=== PATIENT | male | born 1940 | race Caucasian/White ===

== ENCOUNTER 2021-01-28 06:14 | Day surgery (SDC) | payer MEDICARE ==
[2021-01-27 11:50] VITALS: BMI 26.6
[2021-01-28] MEDS ORDERED: Phenylephrine 2.5% Ophth Soln 5 ML BOT ONE (06:18)
[2021-01-28] MEDS ORDERED: Cyclopentolate 1% Opth Drop 2 ML BOT ONE (06:18)
[2021-01-28] MEDS ORDERED: EPINEPHrine 0.3 MG in Ophthalmic Irrigation Solution 500 ML IRR SCH (06:30)
[2021-01-28] MEDS ORDERED: Midazolam HCl 2 mg/2 ml Vial ONE (06:32)
[2021-01-28] MEDS ORDERED: PROPOFOL 20 ML ONE (06:32)
[2021-01-28] MEDS ORDERED: Fentanyl 100 MCG/2 ML VIAL ONE (06:32)
[2021-01-28] MEDS ORDERED: Lidocaine 1% PF 5 ML VIAL ONE (07:19)
[2021-01-28] MEDS ORDERED: CEFAZOLIN 1 GM VIAL ONE (07:19)
[2021-01-28] MEDS ORDERED: Bupivacaine PF 0.75% SDV 10 ML ONE (07:19)
[2021-01-28] MEDS ORDERED: Triamcinolone 40 MG/ML VIAL ONE (07:19)
[2021-01-28] MEDS ORDERED: Lidocaine 4% PF 5 ML AMP ONE (07:19)
[2021-01-28] MEDS ORDERED: Maxitrol 0.1% Opth Oint 3.5 GM TUBE ONE (07:19)
== END 2021-01-28 08:15 | disposition home or self-care (01) ==
LOC: SDC 06:14
PROVIDERS: ATTEND Ophthalmology Retina Specialist
PROC: 08B53ZZ Excision of Left Vitreous, Percutaneous Approach (ICD-10-PCS; principal; 2021-01-28)
DX: H43.392 Other vitreous opacities, left eye (principal); H43.02 Vitreous prolapse, left eye; I10 Essential (primary) hypertension; E78.5 Hyperlipidemia, unspecified; I25.10 Atherosclerotic heart disease of native coronary artery without angina pectoris; E11.9 Type 2 diabetes mellitus without complications; F17.200 Nicotine dependence, unspecified, uncomplicated; Z85.46 Personal history of malignant neoplasm of prostate; Z79.4 Long term (current) use of insulin; Z79.82 Long term (current) use of aspirin; Z79.84 Long term (current) use of oral hypoglycemic drugs; Z79.899 Other long term (current) drug therapy; Z95.1 Presence of aortocoronary bypass graft; Z98.41 Cataract extraction status, right eye; Z98.42 Cataract extraction status, left eye; Z96.1 Presence of intraocular lens
CPT/HCPCS: 36416; J0171; J0690; J2250; J2704; J3010; J3301; J3490

== ENCOUNTER 2023-11-12 07:55 | Day surgery (SDC) | payer MEDICARE ==
[2023-11-11 09:57] VITALS: BMI 25.1
[2023-11-12] MEDS ORDERED: Iopamidol 370 76% 100 ML VIAL ONE (08:56)
[2023-11-12 09:34] LABS: #Basophils 0.04 10x3/uL (0.0-0.2); %Basophils 0.7 % (0.0-1.0); %Eosinophils 1.9 % (0.0-10.0); %Lymphocytes 25.8 % (21.0-51.0); %Monocytes 9.1 % (0.0-10.0); %Neutrophils 62.2 % (42.0-75.0); Hematocrit 42.2 % (42.0-52.0); Hemoglobin 14.3 g/dL (14.0-18.0); Mean Corpuscular HGB CONC 33.9 g/dL (32.0-36.0); Mean Corpuscular Hemoglobin 29.8 pg (27.0-31.0); Mean Corpuscular Volume 87.9 fL (78.0-98.0); Mean Platelet Volume 9.2 fL (7.4-10.4); Platelet Count 143 10x3/uL (130-400); RBC Distribution Width 14.6 % (11.5-14.5)
[2023-11-12] MEDS ORDERED: Heparin 10,000 UNITS/ 10 ML VIAL ONE (09:37)
[2023-11-12] MEDS ORDERED: Adenosine 6 mg (2 mL) VIAL ONE (09:37)
[2023-11-12] MEDS ORDERED: Verapamil 5 MG/2 ML VIAL ONE (09:37)
[2023-11-12] MEDS ORDERED: Nitroglycerin 50 MG/250 ML BOT 0 ML ONE (09:39)
[2023-11-12 09:52] LABS: Anion Gap 13 mmol/L (10-20); BUN (Urea Nitrogen) 19 mg/dL (8.4-25.7); Calc. Creatinine Clearance 57 mL/min (70-130); Calcium 9.8 mg/dL (7.8-10.44); Carbon Dioxide 29 mmol/L (23-31); Chloride 96 mmol/L (98-107); Estimated GFR 69; Glucose 385 mg/dL (83-110); Potassium 4.2 mmol/L (3.5-5.1); Sodium 134 mmol/L (136-145)
[2023-11-12] MEDS ORDERED: Midazolam HCl 2 mg/2 ml Vial ONE (10:25)
[2023-11-12] MEDS ORDERED: fentaNYL 50 mcg/mL 1 mL Vial ONE (10:25)
[2023-11-12] MEDS ORDERED: TICAGRELOR 90 MG TABLET ONE (11:31)
== END 2023-11-12 19:46 | disposition home or self-care (01) ==
LOC: CCL 07:55
PROVIDERS: ATTEND Internal Medicine Cardiovascular Disease
PROC: 4A023N8 Measurement of Cardiac Sampling and Pressure, Bilateral, Percutaneous Approach (ICD-10-PCS; principal; 2023-11-12)
PROC: B200YZZ Plain Radiography of Single Coronary Artery using Other Contrast (ICD-10-PCS; 2023-11-12)
DX: I25.119 Atherosclerotic heart disease of native coronary artery with unspecified angina pectoris (principal); I11.0 Hypertensive heart disease with heart failure; C61 Malignant neoplasm of prostate; E87.5 Hyperkalemia; E78.00 Pure hypercholesterolemia, unspecified; R53.82 Chronic fatigue, unspecified; R40.0 Somnolence; K21.9 Gastro-esophageal reflux disease without esophagitis; Z90.79 Acquired absence of other genital organ(s); Z98.890 Other specified postprocedural states
CPT/HCPCS: 80048; 82962; 85025; 85347 ×2; 93005; 93454; C1769 ×4; C1874; C1887 ×3; C1894; C9604; J1644; J2250; J3010; 36416; 92937; 99152; 99153; J0153; Q9967